=== PATIENT | female | born 1950 | race Asian ===

== ENCOUNTER 2020-09-20 20:52 | Emergency (ER) | payer OTHER, SELFPAY ==
[2020-09-20 21:03] VITALS: BP 115/67; PULSE 64; RESP 16; TEMP 36.2; O2SAT 97; BMI 17.7
--- NOTE | 2020-09-20 21:14 | DI.RAD.S_ITS ---
PROCEDURE: XR FOOT RT MIN 3V INDICATIONS: post surgery, thinks infection right foot TECHNIQUE: 3 views of the foot were acquired. COMPARISON: None. FINDINGS: Bones: No fractures or dislocations. Surgical changes of right 1st metatarsal medial bunionectomy, osteotomy with fixation screw, and 1st proximal phalanx osteotomy and fusion stable. The medial metatarsal head neck is non corticated and the oblique image demonstrates questionable erosive changes. Ununited 1st proximal phalanx osteotomy. No suspicious bony lesions. Soft tissues: No tibiotalar joint effusion. Achilles tendon appears normal. Mild overlying soft tissue thickening adjacent to the 1st metatarsal head. IMPRESSION: 1. Possible erosive change on medial aspect of the 1st metatarsal head and neck, though correlation with timing of prior surgery is recommended as these could also be iatrogenic changes. Correlate with site of skin changes. Dictated by: Jigna Duke M.D. on 09/20/2020 at 22:02 Approved by: Jigna Duke M.D. on 09/20/2020 at 22:05
--- NOTE | 2020-09-21 00:06 | ED.LOWEXIN ---
HPI - Extremity Injury (Lower) General Chief Complaint: Extremity Injury, Lower Stated Complaint: post surg-thinks infection Time Seen by Provider: 09/21/20 00:06 Source: patient Mode of arrival: Ambulatory History of Present Illness HPI Narrative: 69-year-old woman who had bunion surgery in early August on the right foot comes in complaining that the right foot is draining slightly and increasingly swollen and more tender. She does not describe fevers, chills, cough, palpitations, chest pain, abdominal pain, vomiting or diarrhea. She notes that the skin wound does seem to be healing after a bit of drainage that was noticed over the last 2-3 days. She is able to walk but it is somewhat painful. The surgery was done by a surgeon with [facility]. Related Data Previous Rx's Medication Instructions Recorded cephalexin 500 mg capsule 500 mg PO TID #15 cap 09/21/20 Allergies Allergy/AdvReac Type Severity Reaction Status Date / Time No Known Drug Allergies Allergy Verified 09/20/20 21:05 Review of Systems Review of Systems Narrative: Remainder of complete review of systems is otherwise unremarkable except for that included in the HPI. Patient History Medical History (Updated 09/21/20 @ 01:58 by Lily Mckeon MD) Bunion of great toe Social History Smoking Status: Never smoker Smoking Status: Never smoker Substance Use Type: does not use Exam Narrative Exam Narrative: General: Alert appropriate in no acute distress Respiratory: Able to speak in full sentences, no obvious respiratory distress Skin: No obvious rashes, warm and dry Neurologic: Grossly intact no obvious asymmetries or abnormalities Psych: appropriate insight and affect, cooperative Extremity: Right foot is somewhat more swollen than the left. The surgical wound cells actually looks like it is well healed with no underlying abscess, drainage or surrounding cellulitis. Initial Vital Signs Initial Vital Signs: Vital Signs Temperature 97.1 F L 09/20/20 21:03 Pulse Rate 64 09/20/20 21:03 Respiratory Rate 16 09/20/20 21:03 Blood Pressure 115/67 09/20/20 21:03 Pulse Oximetry 97 09/20/20 21:03 Course Orders Ordered: ED Orders 09/20/20 21:14 XR foot RT min 3V Stat 09/21/20 00:30 C-Reactive Protein Quant Stat Complete Blood Count AUTO DIFF Stat Comprehensive Metabolic Panel Stat Erythrocyte Sedimentation Rate Stat Lactate (Lactic Acid) Stat 09/21/20 00:45 Blood Culture Stat Discontinued Medications Ceftriaxone Sodium 2,000 mg/ (Sodium Chloride) 100 mls @ 200 mls/hr IV NOW ONE Stop: 09/21/20 00:08 Last Infusion: 09/21/20 02:02 Dose: 0 mls/hr Documented by: Admin: 09/21/20 01:07 Dose: 200 mls/hr Documented by: SOWMYA Vital Signs Vital signs: Vital Signs - 8 hr 09/21/20 02:03 Pulse Rate 60 Respiratory Rate 16 Blood Pressure 109/63 Pulse Oximetry 100 MDM - Extremity Injury (Lower) Lab Data Result diagrams: 09/21/20 00:30 09/21/20 00:30 Labs: Lab Results 09/21/20 09/21/20 09/21/20 Range/Units 00:30 00:30 00:30 WBC 7.5 (4.5-11.0) X10^3/uL RBC 4.47 (4.0-5.2) X10^6/uL Hgb 14.1 (12.0-16.0) g/dL Hct 41.9 (36-46) % MCV 93.7 (80-100) fL MCH 31.6 (26-34) PG MCHC 33.7 (30-36) % RDW 13.7 (11.6-14.8) % Plt Count 224 (150-400) X10^3/uL Neut % (Auto) 47.0 L (50-75) % Lymph % (Auto) 38.8 (25-40) % Stanton % (Auto) 7.2 (3-14) % Eos % (Auto) 6.0 H (2-4) % Baso % (Auto) 1.0 (0-2) % Neut # (Auto) 3500 (5357-6811) /uL Lymph # (Auto) 2900 (2350-0733) /uL Stanton # (Auto) 500 (0-900) /uL Eos # (Auto) 400 (0-450) /uL Baso # (Auto) 100 (0-100) /uL ESR (0-20) MM/HR Sodium 139 (137-145) mmol/L Potassium 3.9 (3.4-5.1) mmol/L Chloride 103 (98-107) mmol/L Carbon Dioxide 29 (22-32) mmol/L BUN 18 H (7-17) mg/dL Creatinine 0.50 L (0.52-1.04) mg/dL Estimated GFR > 60.0 (>60) mL/min BUN/Creatinine Ratio 36.0 H (6-22) Glucose 105 (80-110) mg/dL Lactate 0.6 L (0.7-2.1) mmol/L Calcium 10.1 (8.4-10.2) mg/dL Total Bilirubin 0.5 (0.2-1.3) mg/dL AST 29 (14-36) IU/L ALT 19 (<35) IU/L Alkaline Phosphatase 84 (38-126) U/L C-Reactive Protein (<1.0) mg/dL Total Protein 7.8 (6.3-8.2) g/dL Albumin 4.5 (3.5-5.0) g/dL Globulin 3.3 (1.7-4.1) g/dL Albumin/Globulin Ratio 1.4 (1.0-2.8) 09/21/20 09/21/20 Range/Units 00:30 00:30 WBC (4.5-11.0) X10^3/uL RBC (4.0-5.2) X10^6/uL Hgb (12.0-16.0) g/dL Hct (36-46) % MCV (80-100) fL MCH (26-34) PG MCHC (30-36) % RDW (11.6-14.8) % Plt Count (150-400) X10^3/uL Neut % (Auto) (50-75) % Lymph % (Auto) (25-40) % Stanton % (Auto) (3-14) % Eos % (Auto) (2-4) % Baso % (Auto) (0-2) % Neut # (Auto) (5860-3859) /uL Lymph # (Auto) (2348-4163) /uL Stanton # (Auto) (0-900) /uL Eos # (Auto) (0-450) /uL Baso # (Auto) (0-100) /uL ESR 12 (0-20) MM/HR Sodium (137-145) mmol/L Potassium (3.4-5.1) mmol/L Chloride (98-107) mmol/L Carbon Dioxide (22-32) mmol/L BUN (7-17) mg/dL Creatinine (0.52-1.04) mg/dL Estimated GFR (>60) mL/min BUN/Creatinine Ratio (6-22) Glucose (80-110) mg/dL Lactate (0.7-2.1) mmol/L Calcium (8.4-10.2) mg/dL Total Bilirubin (0.2-1.3) mg/dL AST (14-36) IU/L ALT (<35) IU/L Alkaline Phosphatase (38-126) U/L C-Reactive Protein < 0.5 (<1.0) mg/dL Total Protein (6.3-8.2) g/dL Albumin (3.5-5.0) g/dL Globulin (1.7-4.1) g/dL Albumin/Globulin Ratio (1.0-2.8) Imaging Data Xr foot: Radiologist's Impression: FINDINGS: Bones: No fractures or dislocations. Surgical changes of right 1st metatarsal medial bunionectomy, osteotomy with fixation screw, and 1st proximal phalanx osteotomy and fusion stable. The medial metatarsal head neck is non corticated and the oblique image demonstrates questionable erosive changes. Ununited 1st proximal phalanx osteotomy. No suspicious bony lesions. Soft tissues: No tibiotalar joint effusion. Achilles tendon appears normal. Mild overlying soft tissue thickening adjacent to the 1st metatarsal head. IMPRESSION: 1. Possible erosive change on medial aspect of the 1st metatarsal head and neck, though correlation with timing of prior surgery is recommended as these could also be iatrogenic changes. Correlate with site of skin changes. Dictated by: Jigna Duke M.D. on 09/20/2020 at 22:02 [facility] Narrative Medical decision making narrative: 69-year-old woman with bunion surgery 6 weeks ago increasing pain and swelling. Lab work is reassuring with normal white blood cell count, sed rate and C reactive protein. She was given 2 g of IV ceftriaxone in the emergency department and will be discharged home with 5 additional days of cephalexin. She is given copies of her blood work and asked to follow-up with her surgeon to make sure that her foot is healing as expected. There is no evidence of abscess, cellulitis, osteomyelitis or DVT at this time. She is safe for home discharge Discharge Plan Departure Patient Disposition: Home Clinical Impression: Foot swelling Instructions: DI for Osteomyelitis Activity Restrictions/Additional Instructions: Thank you for coming in today With the swelling and concerns that you had I want to make sure you did not have an infection at the surgical site or in the bone. It does not appear that you do. You did receive IV antibiotics, ceftriaxone, in the emergency department. I would like you to finish 5 more days of cephalexin. I have given you copies of your lab tests, please share these with your orthopedic surgeon. I would request that you make an appointment to review the foot pain and swelling within the next week or so. Thank you Prescriptions: New cephalexin 500 mg capsule 500 mg PO TID Qty: 15 RF: 0
[2020-09-21 00:46] LABS: Add Manual Diff / Slide Review NO; Basophils Absolute Auto 100 /uL (0-100); Eosinophils Absolute Auto 400 /uL (0-450); Hematocrit 41.9 % (36-46); Hemoglobin 14.1 g/dL (12.0-16.0); Lymphocytes Absolute Auto 2900 /uL (1100-4500); Lymphocytes Percent Auto 38.8 % (25-40); Mean Corpuscular HGB Conc 33.7 % (30-36); Mean Corpuscular Hemoglobin 31.6 PG (26-34); Mean Corpuscular Volume 93.7 fL (80-100); Monocytes Absolute Auto 500 /uL (0-900); Monocytes Percent Auto 7.2 % (3-14); Neutrophils Absolute Auto 3500 /uL (1500-7000); Platelet Count 224 X10^3/uL (150-400); Red Blood Cell Count 4.47 X10^6/uL (4.0-5.2); Red Cell Distribution Width 13.7 % (11.6-14.8); White Blood Cell Count 7.5 X10^3/uL (4.5-11.0)
[2020-09-21 00:52] LABS: Lactate (Lactic Acid) 0.6 mmol/L (0.7-2.1)
[2020-09-21 00:53] LABS: Alanine Aminotransferase 19 IU/L (<35); Albumin 4.5 g/dL (3.5-5.0); Albumin Globulin Ratio 1.4 (1.0-2.8); Alkaline Phosphatase 84 U/L (38-126); Aspartate Aminotransferase 29 IU/L (14-36); Bilirubin Total 0.5 mg/dL (0.2-1.3); Blood Urea Nitrogen 18 mg/dL (7-17); Calcium 10.1 mg/dL (8.4-10.2); Carbon Dioxide 29 mmol/L (22-32); Chloride 103 mmol/L (98-107); Estimated Glomerular Filt Rate > 60.0 mL/min (>60); Globulin 3.3 g/dL (1.7-4.1); Glucose 105 mg/dL (80-110); HEMOLYSIS < 15 (0-50); Potassium 3.9 mmol/L (3.4-5.1); Sodium 139 mmol/L (137-145); Total Protein 7.8 g/dL (6.3-8.2)
[2020-09-21 00:54] LABS: C-Reactive Protein Quant < 0.5 mg/dL (<1.0)
[2020-09-21 01:05] LABS: Erythrocyte Sedimentation Rate 12 MM/HR (0-20)
[2020-09-21] MEDS: cefTRIAXone 2,000 MG in SODIUM CHLORIDE 0.9% 100 ML 200 ML IV (01:07)
[2020-09-21 02:03] VITALS: BP 109/63; PULSE 60; RESP 16; O2SAT 100
== END 2020-09-21 02:06 | disposition home or self-care (01) ==
PROVIDERS: Emergency Provider Emergency Medicine
DX: R22.41 Localized swelling, mass and lump, right lower limb (principal)
CPT/HCPCS: 36415; 73630; 80053; 83605; 85025; 85651; 86140; 87040; 96365; 99284; J0696